=== PATIENT | male | born 1980 | race American Indian/Alaskan Native ===

== ENCOUNTER 2016-11-06 09:17 | Emergency (ER) | payer OTHER ==
[2016-11-06 10:15] VITALS: BP 140/87
[2016-11-06 11:51] LABS: Bilirubin,Urine NEG (Negative); Blood,Urine NEG (Negative); Ketones,Urine NEG (Negative); Leukocyte Esterase,Urine NEG (Negative); Mucus,Urine FEW /HPF; Nitrite,Urine NEG (Negative); Protein,Urine <15 mg/dL mg/dL (Negative); Urobilinogen,Urine < 2.0 mg/dL (<2.0)
--- NOTE | 2016-11-06 12:21 | Emergency Department Report ---
HPI - General Chief Complaint: Urogenital-Male Time Seen by Provider: 11/06/16 11:31 - HPI HPI: 36-year-old male presents today with painful urination 2 days. Denies blood in urine, increased urinary frequency or urgency. Denies penile discharge. Positive for history of similar symptoms and states he was diagnosed with chlamydia. Denies any recent unprotected sex. Denies fever, chills, nausea, vomiting, chest pain, shortness of breath, abdominal pain. ED Past Medical Hx - Past Medical History Hx Asthma: Yes - Social History Smoking Status: Never Smoker Substance Use Type: None - Medications Home Medications: Home Medications Medication Instructions Recorded Confirmed Last Taken Type Loratadine [Claritin] 10 mg PO DAILY #30 tablet 01/26/14 Unknown Rx Albuterol Sulfate [Ventolin HFA] 2 puff IH Q4H PRN #1 hfa.aer.ad 03/16/14 Unknown Rx predniSONE [Deltasone] 50 mg PO QDAY #5 tab 03/16/14 Unknown Rx Phenazopyridine [Pyridium] 200 mg PO TID #6 tab 11/06/16 Unknown Rx ED Review of Systems ROS: Stated complaint: PAIN ON URINATION Other details as noted in HPI Constitutional: denies: chills, fever, malaise Eyes: denies: eye pain ENT: denies: ear pain, throat pain, congestion Respiratory: denies: cough, shortness of breath, wheezing Cardiovascular: denies: chest pain, palpitations Endocrine: no symptoms reported Gastrointestinal: denies: abdominal pain, nausea, vomiting Genitourinary: dysuria. denies: urgency, frequency, hematuria, discharge Skin: denies: rash Neurological: denies: headache, weakness Physical Exam - Physical Exam Vital Signs: Vital Signs 11/06/16 10:13 Temperature 98.2 F Pulse Rate 81 Respiratory 20 Rate Blood Pressure 140/87 O2 Sat by Pulse 98 Oximetry Physical Exam: GENERAL: The patient is well-developed and well-nourished. Patient is in NAD. HEAD: Normocephalic. Atraumatic. CHEST/LUNGS: Clear to auscultation throughout. HEART/CARDIOVASCULAR: Regular rate and rhythm. ABDOMEN: Abdomen is soft, nontender. Bowel sounds normoactive. No guarding or rebound tenderness. Negative for CVA tenderness bilaterally. EXTREMITIES: Peripheral pulses intact. Capillary refill less than 2 seconds. NEURO: Alert and oriented x 3. Normal gait. ED Course Vital Signs 11/06/16 10:13 Temperature 98.2 F Pulse Rate 81 Respiratory 20 Rate Blood Pressure 140/87 O2 Sat by Pulse 98 Oximetry ED Medical Decision Making - Lab Data Vital Signs 11/06/16 10:13 Temperature 98.2 F Pulse Rate 81 Respiratory 20 Rate Blood Pressure 140/87 O2 Sat by Pulse 98 Oximetry Lab Results 11/06/16 Range/Units 11:29 Urine Color Yellow (Yellow) Urine Turbidity Clear (Clear) Urine pH 8.0 H (5.0-7.0) Ur Specific [place] 1.020 (1.003-1.030) Urine Protein <15 mg/dl (Negative) mg/dL Urine Glucose (UA) Neg (Negative) mg/dL Urine Ketones Neg (Negative) mg/dL Urine Blood Neg (Negative) Urine Nitrite Neg (Negative) Urine Bilirubin Neg (Negative) Urine Urobilinogen < 2.0 (<2.0) mg/dL Ur Leukocyte Esterase Neg (Negative) Urine WBC (Auto) 1.0 (0.0-6.0) /HPF Urine RBC (Auto) 1.0 (0.0-6.0) /HPF Urine Mucus Few /HPF - Medical Decision Making 36-year-old male presents today with burning upon urination 2 days. His urinalysis is within normal limits. Patient is recommended to drink water. A referral for urologist has been provided. Patient is in no acute distress at this time. He will be discharged home and is encouraged to follow up with a primary care provider. He will be sent home on Pyridium and is encouraged to return to the emergency room for any worsening symptoms. Critical care attestation.: If time is entered above; I have spent that time in minutes in the direct care of this critically ill patient, excluding procedure time. ED Disposition Clinical Impression: Dysuria Disposition: DISCHARGED TO HOME OR SELFCARE Is pt being admited?: No Does the pt Need Aspirin: No Condition: Stable Instructions: Dysuria (ED) Additional Instructions: Follow with primary care provider. Return to the emergency department if symptoms worsen. Prescriptions: Phenazopyridine [Pyridium] 200 mg PO TID #6 tab Referrals: PRIMARY MD DACIA [Primary Care Provider] - 3-5 Days HARRIETT LOZANO MD [Staff Physician] - 3-5 Days Forms: Work/School Release Form(ED), STI Treatment and Prevention Time of Disposition: 12:22
== END 2016-11-06 12:36 | disposition home or self-care (01) ==
LOC: ED 09:17
DX: R30.0 Dysuria (principal); J45.909 Unspecified asthma, uncomplicated
CPT/HCPCS: 81001; 99283

== ENCOUNTER 2018-01-02 18:28 | Emergency (ER) | payer OTHER ==
[2018-01-02 18:40] VITALS: BP 120/79
--- NOTE | 2018-01-02 20:56 | Emergency Department Report ---
ED Male HPI - General Chief complaint: Urogenital-Male Stated complaint: BURNING URINATION Time Seen by Provider: 01/02/18 20:56 Source: patient Mode of arrival: Ambulatory Limitations: No Limitations - History of Present Illness Initial comments: 37-year-old -[place] male comes in complaining of burning on urination for 3 days. Patient reports possible STD. Patient essentially active with females 2 partners unprotected. She denies any fever chills no nausea or vomiting abdominal pain or pelvic pain. He reports is unsure if he's having any penile discharge. Patient's a past medical history of asthma currently takes albuterol allergic to epi. MD Complaint: dysuria -: days(s) (3) Radiation: none Severity: mild Quality: burning Consistency: constant Improves with: none Worsens with: urination denies other symptoms - Related Data Sexually active: Yes (female unprotected 2 partners in the last 6 months) Previous Rx's Medication Instructions Recorded Last Taken Type Loratadine [Claritin] 10 mg PO DAILY #30 tablet 01/26/14 Unknown Rx Albuterol Sulfate [Ventolin HFA] 2 puff IH Q4H PRN #1 hfa.aer.ad 03/16/14 Unknown Rx predniSONE [Deltasone] 50 mg PO QDAY #5 tab 03/16/14 Unknown Rx Phenazopyridine [Pyridium] 200 mg PO TID #6 tab 11/06/16 Unknown Rx Doxycycline [Vibramycin CAP] 100 mg PO Q12HR #20 capsule 01/02/18 Unknown Rx Allergies Allergy/AdvReac Type Severity Reaction Status Date / Time epinephrine Allergy Swelling Verified 01/26/14 06:43 [From Primatene Mist] epinephrine bitartrate Allergy Swelling Verified 01/26/14 06:43 [From Primatene Mist] ED Review of Systems ROS: Stated complaint: BURNING URINATION Other details as noted in HPI Constitutional: denies: chills, fever Eyes: denies: eye pain, eye discharge, vision change ENT: denies: ear pain, throat pain Respiratory: denies: cough, shortness of breath, wheezing Cardiovascular: denies: chest pain, palpitations Endocrine: no symptoms reported Gastrointestinal: denies: abdominal pain, nausea, diarrhea Genitourinary: dysuria Musculoskeletal: denies: back pain, joint swelling, arthralgia Skin: denies: rash, lesions Neurological: denies: headache, weakness, paresthesias Psychiatric: denies: anxiety, depression Hematological/Lymphatic: denies: easy bleeding, easy bruising ED Past Medical Hx - Past Medical History Previous Medical History?: Yes Hx Asthma: Yes - Surgical History Past Surgical History?: No - Social History Smoking Status: Never Smoker - Medications Home Medications: Home Medications Medication Instructions Recorded Confirmed Last Taken Type Loratadine [Claritin] 10 mg PO DAILY #30 tablet 01/26/14 Unknown Rx Albuterol Sulfate [Ventolin HFA] 2 puff IH Q4H PRN #1 hfa.aer.ad 03/16/14 Unknown Rx predniSONE [Deltasone] 50 mg PO QDAY #5 tab 03/16/14 Unknown Rx Phenazopyridine [Pyridium] 200 mg PO TID #6 tab 11/06/16 Unknown Rx Doxycycline [Vibramycin CAP] 100 mg PO Q12HR #20 capsule 01/02/18 Unknown Rx ED Physical Exam - General Limitations: No Limitations General appearance: alert, in no apparent distress - Head Head exam: Present: atraumatic, normocephalic - Eye Eye exam: Present: normal appearance - ENT ENT exam: Present: mucous membranes moist - Neck Neck exam: Present: normal inspection - Respiratory Respiratory exam: Present: normal lung sounds bilaterally. Absent: respiratory distress - Cardiovascular Cardiovascular Exam: Present: regular rate, normal rhythm. Absent: systolic murmur, diastolic murmur, rubs, gallop - GI/Abdominal GI/Abdominal exam: Present: soft, normal bowel sounds - Rectal Rectal exam: Present: deferred - Extremities Exam Extremities exam: Present: normal inspection - Back Exam Back exam: Present: normal inspection - Neurological Exam Neurological exam: Present: alert, oriented X3 - Psychiatric Psychiatric exam: Present: normal affect, normal mood - Skin Skin exam: Present: warm, dry, intact, normal color. Absent: rash ED Course Vital Signs 01/02/18 18:38 Temperature 98.5 F Pulse Rate 80 Respiratory 18 Rate Blood Pressure 120/79 O2 Sat by Pulse 96 Oximetry ED Medical Decision Making - Medical Decision Making Patient's been evaluated by this provider fast track. GC chlamydia sent out urinalysis sent out. Discussed the patient elected to be treated for STD Rocephin 250 mg IM, azithromycin 1 g by mouth, metronidazole 2 g by mouth now. Discharged patient on doxycycline 100 mg twice a day 10 days. Patient to follow up with his primary care provider if symptoms persist or gets worse. Critical care attestation.: If time is entered above; I have spent that time in minutes in the direct care of this critically ill patient, excluding procedure time. ED Disposition Clinical Impression: Dysuria, Possible exposure to STD Disposition: DC- TO HOME OR SELFCARE Is pt being admited?: No Does the pt Need Aspirin: No Condition: Stable Instructions: Sexually Transmitted Diseases (ED), Safe Sex (ED) Additional Instructions: Complete antibiotics as prescribed. Follow up with her primary care provider if symptoms persist or gets worse. Prescriptions: Doxycycline [Vibramycin CAP] 100 mg PO Q12HR #20 capsule Referrals: PRIMARY CARE, [Primary Care Provider] - 3-5 Days [facility]Provider Group[facility] - 3-5 Days Forms: Work/School Release Form(ED)
[2018-01-02] MEDS ORDERED: XYLOCAINE 1% MPF 5 mL INFILTRATI ONE (21:08)
[2018-01-02] MEDS ORDERED: ZITHROMAX PO ONE (21:08)
[2018-01-02] MEDS ORDERED: FLAGYL PO ONE (21:08)
[2018-01-02] MEDS ORDERED: ROCEPHIN IM ONE (21:08)
[2018-01-02 21:09] LABS: Bilirubin,Urine NEG (Negative); Blood,Urine NEG (Negative); Calcium Oxalate Crystals,Urine 2+; Color,Urine Yellow (Yellow); Mucus,Urine 3+ /HPF; Protein,Urine <15 mg/dL mg/dL (Negative); Urobilinogen,Urine < 2.0 mg/dL (<2.0)
== END 2018-01-02 21:50 | disposition home or self-care (01) ==
LOC: ED 18:28
DX: R30.0 Dysuria (principal); J45.909 Unspecified asthma, uncomplicated; Z88.8 Allergy status to other drugs, medicaments and biological substances
CPT/HCPCS: 81001; 96372; 99283; J0696

== ENCOUNTER 2018-01-16 10:33 | Emergency (ER) | payer OTHER ==
[2018-01-16] MEDS ORDERED: MOTRIN PO ONE (12:24)
--- NOTE | 2018-01-16 12:24 | Emergency Department Report ---
HPI - General Chief Complaint: Pain General Time Seen by Provider: 01/16/18 11:58 - HPI HPI: Patient reports that he is having right rib pain after falling 2 days ago. He said he fell accidentally from ground level and fell on his right side and is having pain to his right rib 4-10 achy worsen movement. Denies any pain with inspiration. Patient has a history of asthma. He states that he took over-the- counter Advil but it did not help. Denies any bruising or swelling to injured area. Denies any coughing or shortness of breath. denies chest pain. ED Past Medical Hx - Past Medical History Previous Medical History?: Yes Hx Asthma: Yes - Surgical History Past Surgical History?: No - Family History Family history: hypertension - Social History Smoking Status: Never Smoker Substance Use Type: Non Opiate Pain - Medications Home Medications: Home Medications Medication Instructions Recorded Confirmed Last Taken Type Loratadine [Claritin] 10 mg PO DAILY #30 tablet 01/26/14 Unknown Rx Albuterol Sulfate [Ventolin HFA] 2 puff IH Q4H PRN #1 hfa.aer.ad 03/16/14 Unknown Rx predniSONE [Deltasone] 50 mg PO QDAY #5 tab 03/16/14 Unknown Rx Phenazopyridine [Pyridium] 200 mg PO TID #6 tab 11/06/16 Unknown Rx Doxycycline [Vibramycin CAP] 100 mg PO Q12HR #20 capsule 01/02/18 Unknown Rx Ibuprofen [Motrin] 600 mg PO Q8H PRN #15 tablet 01/16/18 Unknown Rx ED Review of Systems ROS: Stated complaint: RIB PAIN Other details as noted in HPI Comment: All other systems reviewed and negative Constitutional: no symptoms reported Respiratory: no symptoms reported Cardiovascular: denies: chest pain, palpitations, dyspnea on exertion, edema, syncope, paroxysmal nocturnal dyspnea Gastrointestinal: denies: abdominal pain, nausea, vomiting, diarrhea, constipation Genitourinary: denies: dysuria, hematuria Musculoskeletal: arthralgia. denies: back pain, joint swelling, myalgia Skin: denies: rash Neurological: denies: headache, weakness, numbness, paresthesias, abnormal gait , vertigo Physical Exam - Physical Exam Vital Signs: Vital Signs 01/16/18 10:51 Temperature 98.5 F Pulse Rate 73 Respiratory 20 Rate Blood Pressure 148/83 O2 Sat by Pulse 96 Oximetry General: This is a 37-year-old male well-nourished well-developed in no acute distress. Physical Exam: Head: Normocephalic, atraumatic, no abrasion, no bruising and no contusion. Eyes: Biateral pupils equal and reactive to light, bilateral EOM intact.. Bilateral conjunctival and sclera without injection, normal accommodation. Neck: Supple, No Cervical adenopathy, full range of motion and no C-spine tenderness. No swelling or tracheal deviation normal reflexes Cardiovascular: S1, S2. Regular rate and rhythm. No murmur. Capillary refill is less then 3 seconds. Lungs: Clear to auscultate bilaterally. No rhonchi, wheezes or rales. Tenderness to palpate to right mid axillary line. No chest contusion. No bruising to chest. MSK: Strength 5/5 in all extremities. No joint deformity or crepitus. Normal inspection. Full range of motion to all extremities. No laceration, abrasion or ecchymotic area noted. Abdomen: Non-tender to palpate in all quadrants, no guarding or rebound tenderness, positive bowel sounds in all quadrants. No CVA tenderness. No hernia, bruit or mass. No rigidity or distention. Extremities: No clubbing, cyanosis or edema. +2 pulses. No neurovascular compromise Skin: Clean, dry and intact. No rash or lesions. Back: No vertebral tenderness, no paraspinal tenderness. Ambulates without any difficulties. Psych: Normal mood and behavior ED Course Vital Signs 01/16/18 10:51 Temperature 98.5 F Pulse Rate 73 Respiratory 20 Rate Blood Pressure 148/83 O2 Sat by Pulse 96 Oximetry - Reevaluation(s) Reevaluation #1: 01/16/18 14:50 History of received Motrin 800 mg in Emergency room for right rib pain ED Medical Decision Making - Radiology Data Radiology results: report reviewed X-ray right rib detail with PA chest reveal no acute findings. - Medical Decision Making ED course: She is status post fall 2 days ago. Complains of pain to right rib. X-ray report revealed no acute findings. This is discussed at patient and he voiced understanding. Patient with right rib pain and discharged home with prescription for Motrin and to follow-up with his primary care physician in 2 days if he does not have one to follow-up with outside Medical Center. He voiced understanding of discharge instruction and treatment plan Critical care attestation.: If time is entered above; I have spent that time in minutes in the direct care of this critically ill patient, excluding procedure time. ED Disposition Clinical Impression: Rib pain on right side Accidental fall Qualifiers: Encounter type: initial encounter Qualified Code(s): W19.XXXA - Unspecified fall, initial encounter Disposition: TO HOME OR SELFCARE Is pt being admited?: No Does the pt Need Aspirin: No Condition: Stable Instructions: Musculoskeletal Pain (ED), Fall Prevention (ED) Additional Instructions: Take Motrin as prescribed for right rib pain Increasing fluid intake Follow-up with primary care physician is prescribed Prescriptions: Ibuprofen [Motrin] 600 mg PO Q8H PRN #15 tablet PRN Reason: Pain Referrals: PRIMARY CARE, [Primary Care Provider] - 01/18/18 [facility] [Outside] - 01/18/18 Forms: Work/School Release Form(ED)
--- NOTE | 2018-01-16 13:33 | XRay Report ---
RIGHT RIBS, 3 VIEWS: History: pain. Routine views of the rib cage demonstrate normal mineralization with no significant contour abnormalities, fractures or destructive lesions. PA view of the chest demonstrates no underlying cardiopulmonary abnormalities, fluid or pneumothorax. IMPRESSION: Unremarkable right rib series.
[2018-01-16 15:03] VITALS: BP 128/80
== END 2018-01-16 15:03 | disposition home or self-care (01) ==
LOC: ED 10:33
DX: R07.81 Pleurodynia (principal)
CPT/HCPCS: 99283

== ENCOUNTER 2018-04-13 13:51 | Emergency (ER) | payer OTHER ==
[2018-04-13 14:01] VITALS: BP 129/78
[2018-04-13] MEDS ORDERED: XYLOCAINE 1% MPF 5 mL INFILTRATI ONE (15:51)
[2018-04-13] MEDS ORDERED: ROCEPHIN IM ONE (15:51)
[2018-04-13] MEDS ORDERED: ZITHROMAX PO ONE (15:51)
--- NOTE | 2018-04-13 15:55 | Emergency Department Report ---
ED Male HPI - General Chief complaint: Urogenital-Male Stated complaint: HURT WHEN USING THE BATHROOM Time Seen by Provider: 04/13/18 15:48 Source: patient Mode of arrival: Ambulatory Limitations: No Limitations - History of Present Illness Initial comments: Patient is 37 years old male with no significant past medical history. Patient presented to the ER complaining of penile discharge and burning sensation when he urinates. Patient stated that he had sex is a new partner and he stated that condom broke. Patient denied any fever, nausea or vomiting. MD Complaint: penile discharge, dysuria -: days(s) Location: penis Radiation: none Severity: moderate Quality: burning Worsens with: urination - Related Data Previous Rx's Medication Instructions Recorded Last Taken Type Loratadine [Claritin] 10 mg PO DAILY #30 tablet 01/26/14 Unknown Rx Albuterol Sulfate [Ventolin HFA] 2 puff IH Q4H PRN #1 hfa.aer.ad 03/16/14 Unknown Rx predniSONE [Deltasone] 50 mg PO QDAY #5 tab 03/16/14 Unknown Rx Phenazopyridine [Pyridium] 200 mg PO TID #6 tab 11/06/16 Unknown Rx Doxycycline [Vibramycin CAP] 100 mg PO Q12HR #20 capsule 01/02/18 Unknown Rx Ibuprofen [Motrin] 600 mg PO Q8H PRN #15 tablet 01/16/18 Unknown Rx Allergies Allergy/AdvReac Type Severity Reaction Status Date / Time epinephrine Allergy Swelling Verified 04/13/18 13:57 [From Primatene Mist] epinephrine bitartrate Allergy Swelling Verified 04/13/18 13:57 [From Primatene Mist] ED Review of Systems ROS: Stated complaint: HURT WHEN USING THE BATHROOM Other details as noted in HPI Comment: All other systems reviewed and negative Eyes: denies: eye pain Respiratory: denies: cough, orthopnea, shortness of breath, SOB with exertion, wheezing Cardiovascular: denies: chest pain, palpitations, dyspnea on exertion Gastrointestinal: denies: abdominal pain, nausea, vomiting Genitourinary: urgency, dysuria, frequency, discharge. denies: hematuria, testicular pain, testicular mass Musculoskeletal: denies: back pain Neurological: denies: headache, weakness, numbness, paresthesias ED Past Medical Hx - Past Medical History Hx Asthma: Yes - Social History Smoking Status: Never Smoker Substance Use Type: None - Medications Home Medications: Home Medications Medication Instructions Recorded Confirmed Last Taken Type Loratadine [Claritin] 10 mg PO DAILY #30 tablet 01/26/14 Unknown Rx Albuterol Sulfate [Ventolin HFA] 2 puff IH Q4H PRN #1 hfa.aer.ad 03/16/14 Unknown Rx predniSONE [Deltasone] 50 mg PO QDAY #5 tab 03/16/14 Unknown Rx Phenazopyridine [Pyridium] 200 mg PO TID #6 tab 11/06/16 Unknown Rx Doxycycline [Vibramycin CAP] 100 mg PO Q12HR #20 capsule 01/02/18 Unknown Rx Ibuprofen [Motrin] 600 mg PO Q8H PRN #15 tablet 01/16/18 Unknown Rx ED Physical Exam - General Limitations: No Limitations General appearance: alert, in no apparent distress - Head Head exam: Present: atraumatic, normocephalic, normal inspection - Eye Eye exam: Present: normal appearance - ENT ENT exam: Present: normal exam, normal orophraynx, mucous membranes moist - Neck Neck exam: Present: normal inspection, full ROM. Absent: tenderness, meningismus, lymphadenopathy, thyromegaly - Respiratory Respiratory exam: Present: normal lung sounds bilaterally - Cardiovascular Cardiovascular Exam: Present: regular rate, normal rhythm, normal heart sounds - GI/Abdominal GI/Abdominal exam: Present: soft. Absent: distended, tenderness, guarding, rebound - Extremities Exam Extremities exam: Present: normal inspection, full ROM, normal capillary refill - Back Exam Back exam: Present: normal inspection, full ROM. Absent: CVA tenderness (L) - Neurological Exam Neurological exam: Present: alert, oriented X3, CN II-XII intact, normal gait, reflexes normal - Skin Skin exam: Present: warm, intact, normal color ED Course Vital Signs 04/13/18 13:57 Temperature 98.3 F Pulse Rate 60 Respiratory 16 Rate Blood Pressure 129/78 O2 Sat by Pulse 99 Oximetry Critical care attestation.: If time is entered above; I have spent that time in minutes in the direct care of this critically ill patient, excluding procedure time. ED Disposition Clinical Impression: STD (male) Disposition: DC-01 TO HOME OR SELFCARE Is pt being admited?: No Condition: Stable Instructions: Sexually Transmitted Diseases (ED), Safe Sex (ED) Referrals: PRIMARY CARE, [Primary Care Provider] - 3-5 Days
[2018-04-13 16:21] LABS: Bilirubin,Urine NEG (Negative); Blood,Urine NEG (Negative); Color,Urine Yellow (Yellow); Mucus,Urine FEW /HPF; Protein,Urine <15 mg/dL mg/dL (Negative); Urobilinogen,Urine < 2.0 mg/dL (<2.0)
== END 2018-04-13 18:41 | disposition home or self-care (01) ==
LOC: ED 13:51
DX: A64 Unspecified sexually transmitted disease (principal); J45.909 Unspecified asthma, uncomplicated; Z88.6 Allergy status to analgesic agent
CPT/HCPCS: 81001; 87591; 96372; 99283; J0696

== ENCOUNTER 2019-02-27 17:19 | Emergency (ER) | payer OTHER ==
--- NOTE | 2019-02-27 17:45 | Event Note ---
ED Screening Note ED Screening Note: pt presents with dysuria that began three days ago denies penile discharge concerned for STDs began having after intercourse with partner hx of chlamydia while in college PMHx of asthma allergy to primatene mist non smoker non drinker no drug use This initial assessment/diagnostic orders/clinical plan/treatment(s) is/are subject to change based on patients health status, clinical progression and re- assessment by fellow clinical providers in the ED. Further treatment and workup at subsequent clinical providers discretion. Patient/guardian urged not to elope from the ED as their condition may be serious if not clinically assessed and managed. Initial orders include: UA, G/C
[2019-02-27 17:46] VITALS: BP 126/77
[2019-02-27 18:07] LABS: Bilirubin,Urine NEG (Negative); Blood,Urine NEG (Negative); Color,Urine Yellow (Yellow); Mucus,Urine FEW /HPF; Protein,Urine <15 mg/dL mg/dL (Negative); Urobilinogen,Urine < 2.0 mg/dL (<2.0); WBC,Urine < 1.0 /HPF (0.0-6.0)
[2019-02-27] MEDS ORDERED: XYLOCAINE 1% MPF 5 mL INFILTRATI ONE (19:03)
[2019-02-27] MEDS ORDERED: ROCEPHIN IM ONE (19:03)
[2019-02-27] MEDS ORDERED: ZITHROMAX PO ONE (19:03)
--- NOTE | 2019-02-27 19:17 | Emergency Department Report ---
ED Male HPI - General Chief complaint: Abdominal Pain Stated complaint: HURTS WHEN URINATE/PAIN Time Seen by Provider: 02/27/19 17:41 Source: patient Mode of arrival: Ambulatory Limitations: No Limitations - History of Present Illness Initial comments: This is a 38-year-old male nontoxic, well nourished in appearance, no acute signs of distress presents to the ED with c/o of dysuria x 3 days. Patient stated that symptoms started after having a sexual intercourse 3 days ago without protection. Patient denies any penile discharge, bleeding, ulcers or lesions. Patient denies any back pain. Patient denies any abdominal pain. Patient denies any nausea, vomiting, chest pain, shortness of breathe, fever, chills, headache, back pain, numbness, tingling, stiff neck. Patient denies any other urinary symptoms. MD Complaint: dysuria -: days(s) (3) Location: penis Radiation: none Severity: mild Severity scale (0 -10): 3 Quality: burning Consistency: constant Improves with: none Worsens with: urination dysuria. denies: discharge, swelling, mass, rash, urinary retention, blood in urine, fever, nausea/vomiting, incontinence - Related Data Sexually active: Yes Previous Rx's Medication Instructions Recorded Last Taken Type Loratadine [Claritin] 10 mg PO DAILY #30 tablet 01/26/14 Unknown Rx Albuterol Sulfate [Ventolin HFA] 2 puff IH Q4H PRN #1 hfa.aer.ad 03/16/14 Unknown Rx predniSONE [Deltasone] 50 mg PO QDAY #5 tab 03/16/14 Unknown Rx Phenazopyridine [Pyridium] 200 mg PO TID #6 tab 11/06/16 Unknown Rx DOXYCYCLINE Hyclate [Vibramycin 100 mg PO Q12HR #20 capsule 01/02/18 Unknown Rx CAP] Ibuprofen [Motrin] 600 mg PO Q8H PRN #15 tablet 01/16/18 Unknown Rx Allergies Allergy/AdvReac Type Severity Reaction Status Date / Time epinephrine Allergy Swelling Verified 02/27/19 17:21 [From Primatene Mist] epinephrine bitartrate Allergy Swelling Verified 02/27/19 17:21 [From Primatene Mist] ED Review of Systems ROS: Stated complaint: HURTS WHEN URINATE/PAIN Other details as noted in HPI Constitutional: denies: chills, fever Eyes: denies: eye pain, eye discharge, vision change ENT: denies: ear pain, throat pain Respiratory: denies: cough, shortness of breath, wheezing Cardiovascular: denies: chest pain, palpitations Endocrine: no symptoms reported Gastrointestinal: denies: abdominal pain, nausea, diarrhea Genitourinary: dysuria. denies: urgency Musculoskeletal: denies: back pain, joint swelling, arthralgia Skin: denies: rash, lesions Neurological: denies: headache, weakness, paresthesias Psychiatric: denies: anxiety, depression Hematological/Lymphatic: denies: easy bleeding, easy bruising ED Past Medical Hx - Past Medical History Hx Asthma: Yes - Surgical History Past Surgical History?: No - Social History Smoking Status: Never Smoker Substance Use Type: None - Medications Home Medications: Home Medications Medication Instructions Recorded Confirmed Last Taken Type Loratadine [Claritin] 10 mg PO DAILY #30 tablet 01/26/14 Unknown Rx Albuterol Sulfate [Ventolin HFA] 2 puff IH Q4H PRN #1 hfa.aer.ad 03/16/14 Unknown Rx predniSONE [Deltasone] 50 mg PO QDAY #5 tab 03/16/14 Unknown Rx Phenazopyridine [Pyridium] 200 mg PO TID #6 tab 11/06/16 Unknown Rx DOXYCYCLINE Hyclate [Vibramycin 100 mg PO Q12HR #20 capsule 01/02/18 Unknown Rx CAP] Ibuprofen [Motrin] 600 mg PO Q8H PRN #15 tablet 01/16/18 Unknown Rx ED Physical Exam - General Limitations: No Limitations General appearance: alert, in no apparent distress - Head Head exam: Present: atraumatic, normocephalic - Neck Neck exam: Present: normal inspection, full ROM. Absent: tenderness, meningismu s, lymphadenopathy - exam: Present: normal inspection, other (weather anchor present during exam). Absent: testicular tenderness, urethral discharge, scrotal swelling, vertical testicular lie External exam: Present: normal external exam, other (weather anchor present during Exam). Absent: erythema, swelling, lesions, lacerations, ecchymosis, bleeding - Extremities Exam Extremities exam: Present: normal inspection, full ROM - Back Exam Back exam: Present: normal inspection, full ROM. Absent: tenderness, CVA tenderness (R), CVA tenderness (L), muscle spasm, paraspinal tenderness, vertebral tenderness, rash noted - Neurological Exam Neurological exam: Present: alert, oriented X3 - Psychiatric Psychiatric exam: Present: normal affect, normal mood - Skin Skin exam: Present: warm, dry, intact, normal color. Absent: rash ED Course Vital Signs 02/27/19 17:45 Temperature 97.8 F Pulse Rate 77 Respiratory 18 Rate Blood Pressure 126/77 O2 Sat by Pulse 97 Oximetry - Reevaluation(s) Reevaluation #1: 02/27/19 19:17 Patient is speaking in full sentences with no signs of distress noted. ED Medical Decision Making - Medical Decision Making This is a 38-year-old male that presents with possible STD. Patient is stable was examined by me. There is no abdominal tenderness. UA obtained. Gonorrhea chlamydia swab pending. Patient was instructed to return in 3-5 days for GC results. Patient wanted empirical treatment so patient received 250 mg Rocephin and 1 g of azithromycin by mouth. Patient was instructed to Follow-up with a primary care doctor in 3-5 days or if symptoms worsen and continue return to emergency room as soon as possible. At time of discharge, the patient does not seem toxic or ill in appearance. No acute signs of distress noted. Patient agrees to discharge treatment plan of care. No further questions noted by the patient. Critical care attestation.: If time is entered above; I have spent that time in minutes in the direct care of this critically ill patient, excluding procedure time. ED Disposition Clinical Impression: Possible exposure to STD Disposition: DC-01 TO HOME OR SELFCARE Is pt being admited?: No Does the pt Need Aspirin: No Condition: Stable Instructions: Safe Sex (ED) Additional Instructions: Follow-up with a primary care doctor in 3-5 days or if symptoms worsen and continue return to emergency room as soon as possible. Return in 3-5 days for gonorrhea and chlamydia results. Referrals: PRIMARY CAREMD [Referring] - 3-5 Days SAGRARIO SALDAÑA MD [Staff Physician] - 3-5 Days [facility] [Outside] - 3-5 Days [facility] [Outside] - 3-5 Days Forms: Work/School Release Form(ED)
== END 2019-02-27 19:40 | disposition home or self-care (01) ==
LOC: EEVIPCON 17:19 → ED 17:19
DX: R30.0 Dysuria (principal); J45.909 Unspecified asthma, uncomplicated; Z79.899 Other long term (current) drug therapy; Z88.8 Allergy status to other drugs, medicaments and biological substances
CPT/HCPCS: 81001; 87086; 87591; 96372; 99283; J0696

== ENCOUNTER 2020-06-29 11:01 | Emergency (ER) | payer OTHER ==
[2020-06-29 11:34] VITALS: BP 132/77
--- NOTE | 2020-06-29 13:44 | Emergency Department Report ---
Chief Complaint: Urogenital-Male Stated Complaint: PAIN WHEN URINATING Time Seen by Provider: 06/29/20 13:36 - HPI History of Present Illness: 40-year-old -[place] male patient presents with complaints of penile discharge and dysuria x5 days. He states he believes he has an STD due to recent unprotected sex. Patient denies any hematuria, testicular pain/swelling, fever/chills/sweats, hematuria, abdominal pain, urinary frequency, joint pain/swelling, or penile pain/swelling/lesions. He denies any history of immunosuppressive diseases. - Exam Vital Signs: Vital Signs 06/29/20 11:32 Temperature 98.2 F Pulse Rate 66 Respiratory 18 Rate Blood Pressure 132/77 [Right] MSE screening note: Focused history and physical exam performed. Due to findings the following was ordered: ED Medical Decision Making - Medical Decision Making 40-year-old -[place] male patient presents with complaints of penile discharge and dysuria x5 days. He states he believes he has an STD due to recent unprotected sex. Patient denies any hematuria, testicular pain/swelling, fever/chills/sweats, hematuria, abdominal pain, urinary frequency, joint pain/swelling, or penile pain/swelling/lesions. He denies any history of immunosuppressive diseases. Recommend patient follows up with an urgent care, the health department, or primary care provider for evaluation and treatment of possible STD. His vitals are normal, he is well-appearing, he is stable for discharge home. Strict return precautions were discussed in detail with patient who verbalizes understanding. ED Disposition for MSE Clinical Impression: Penile discharge Disposition: - MED SCREENING EXAM-LEFT Is pt being admited?: No Condition: Stable Instructions: Sexually Transmitted Diseases (ED) Referrals: DEBORAH JARAMILLO MD [Staff Physician] - 2-3 Days ED Physical Exam - General Limitations: No Limitations General appearance: alert, in no apparent distress - Head Head exam: Present: atraumatic, normocephalic - Eye Eye exam: Present: normal appearance. Absent: scleral icterus - Respiratory Respiratory exam: Present: normal lung sounds bilaterally. Absent: respiratory distress - Cardiovascular Cardiovascular Exam: Present: regular rate, normal rhythm. Absent: systolic murmur, diastolic murmur, rubs, gallop - GI/Abdominal GI/Abdominal exam: Present: soft. Absent: distended, tenderness, guarding, rebound, rigid - Extremities Exam Extremities exam: Present: full ROM. Absent: tenderness, joint swelling - Back Exam Back exam: Present: full ROM - Neurological Exam Neurological exam: Present: alert, oriented X3, normal gait - Psychiatric Psychiatric exam: Present: normal affect, normal mood - Skin Skin exam: Present: warm, dry, intact, normal color. Absent: rash, cyanosis, diaphoretic, erythema, petechiae, pallor, ecchymosis ED Review of Systems ROS: Stated complaint: PAIN WHEN URINATING Other details as noted in HPI Constitutional: denies: chills, diaphoresis, fever, malaise, weakness Respiratory: denies: shortness of breath Cardiovascular: denies: chest pain Gastrointestinal: denies: abdominal pain Genitourinary: dysuria, discharge. denies: frequency, hematuria, testicular pain, testicular mass Musculoskeletal: denies: joint swelling, arthralgia Skin: denies: rash, lesions, change in color
== END 2020-06-29 13:52 | disposition left against medical advice (07) ==
LOC: ED 11:01
DX: R30.9 Painful micturition, unspecified (principal); Z53.21 Procedure and treatment not carried out due to patient leaving prior to being seen by health care provider